=== PATIENT | female | born 1970 | race Caucasian/White ===

== ENCOUNTER 2017-02-28 15:21 | Inpatient (IN) | payer OTHER ==
[~2017-02-28] VITALS: Ht 170.2 cm; Wt 79.6 kg
[2017-02-28 16:16] LABS: BASOPHIL % 0.3 % (0-2); PLATELET COUNT 254 x10^3mcL (130-400); RED CELL DISTRIBUTION WIDTH 12.6 % (11.5-14.5)
[2017-02-28 16:20] LABS: CALCIUM 8.3 mg/dL (8.5-10.1); CHLORIDE SERUM 104 mmol/L (98-107); CREATININE SERUM 0.9 mg/dL (0.6-1.0); GFR1 > 60 mL/min; GLUCOSE SERUM 104 mg/dL (74-106); POTASSIUM SERUM 3.8 mmol/L (3.5-5.1); SODIUM SERUM 139 mmol/L (136-145)
[2017-02-28 16:25] LABS: ALBUMIN 3.5 g/dL (3.4-5.0); ALKALINE PHOSPHATASE 74 U/L (46-116); ALT/SGPT 26 U/L (14-59); AMYLASE 32 U/L (25-115); AST/SGOT 14 U/L (15-37); BILIRUBIN TOTAL 0.6 mg/dL (0.20-1.00); LIPASE 86 IU/L (73-393); TOTAL PROTEIN, SERUM 7.1 g/dL (6.4-8.2)
[2017-02-28] MEDS ORDERED: [UNRECOGNIZED DRUG - OTHER] PO (18:09)
[2017-02-28 19:12] VITALS: BP 137/83
[2017-02-28 19:43] LABS: T3 TOTAL 1.17 ng/mL
[2017-02-28 19:52] LABS: CHOLESTEROL/HDL RATIO 3.6; MAGNESIUM 1.7 mg/dL (1.8-2.4); PHOSPHOROUS 2.9 mg/dL (2.5-4.9)
[2017-02-28 19:58] LABS: FREE T4 1.1 ng/dL (0.76-1.46); FREE THYROXINE INDEX 3.1 ug/dL (1.4-4.5); T4(THYROXINE) 9.9 ug/dL (4.7-13.3)
[2017-02-28 21:48] VITALS: BP 125/82
[2017-02-28 23:41] LABS: UA SPECIFIC GRAVITY >=1.030 (1.005-1.035); microscopic required? YES; urine erythrocyte 1+ (NEGATIVE)
[2017-02-28 23:53] LABS: AMPHETAMINE QUAL UR NONE DETECTED (NEG <=1000)
[2017-03-01 06:10] LABS: BASOPHIL % 0.3 % (0-2); PLATELET COUNT 194 x10^3mcL (130-400); RED CELL DISTRIBUTION WIDTH 12.3 % (11.5-14.5)
[2017-03-01 06:13] VITALS: BP 109/69
[2017-03-01 06:14] LABS: CALCIUM 7.7 mg/dL (8.5-10.1); CARBON DIOXIDE 26.1 mmol/L (21-32); CHLORIDE SERUM 107 mmol/L (98-107); CREATININE SERUM 0.9 mg/dL (0.6-1.0); GFR1 > 60 mL/min; GLUCOSE SERUM 97 mg/dL (74-106); MAGNESIUM 1.8 mg/dL (1.8-2.4); POTASSIUM SERUM 3.6 mmol/L (3.5-5.1); SODIUM SERUM 141 mmol/L (136-145)
[2017-03-01 08:54] VITALS: BP 116/67
[2017-03-01 11:13] VITALS: Ht 170.2 cm; Wt 79.6 kg
[2017-03-01 13:04] VITALS: BP 115/62
[2017-03-01] MEDS ORDERED: APAP/HYDROCODON1 T13 PO (16:12)
[2017-03-01] MEDS ORDERED: ZOF4 PO ×2 (16:13→16:18)
[2017-03-01] MEDS ORDERED: LOPERAMIDE HCL2 M1 PO (16:15)
[2017-03-01 16:20] VITALS: BP 115/62
== END 2017-03-01 17:49 | disposition home or self-care (01) | DRG 249 ==
LOC: ED 15:21 → DU 17:42
PROVIDERS: Emergency Medicine; Family Medicine; Family Medicine Sports Medicine
DX: A08.4 Viral intestinal infection, unspecified (principal); E83.42 Hypomagnesemia; E83.51 Hypocalcemia; E78.5 Hyperlipidemia, unspecified; Z85.41 Personal history of malignant neoplasm of cervix uteri; T62.91XA Toxic effect of unspecified noxious substance eaten as food, accidental (unintentional), initial encounter; Y92.89 Other specified places as the place of occurrence of the external cause
CPT/HCPCS: 83880; 84439; 87046; 87046-59; 87804; J1885; J2405; J3010; J7030; Q9967

== ENCOUNTER 2017-03-13 13:31 | Inpatient (IN) | payer OTHER ==
[~2017-03-13] VITALS: Ht 170.2 cm; Wt 77.6 kg
[~2017-03-13 13:31] MED LIST: APAP/HYDROCODON1 T13 PO; LOPERAMIDE HCL2 M1 PO; ZOF4 PO; [UNRECOGNIZED DRUG - OTHER] PO
[2017-03-13 16:03] LABS: BASOPHIL % 0.7 % (0-2); PLATELET COUNT 308 x10^3mcL (130-400); RED CELL DISTRIBUTION WIDTH 12.7 % (11.5-14.5)
[2017-03-13 16:10] LABS: CALCIUM 9.3 mg/dL (8.5-10.1); CARBON DIOXIDE 24.4 mmol/L (21-32); CHLORIDE SERUM 105 mmol/L (98-107); GFR1 > 60 mL/min; GLUCOSE SERUM 96 mg/dL (74-106); POTASSIUM SERUM 3.2 mmol/L (3.5-5.1); SODIUM SERUM 143 mmol/L (136-145)
[2017-03-13 16:15] LABS: ALBUMIN 3.7 g/dL (3.4-5.0); ALKALINE PHOSPHATASE 84 U/L (46-116); ALT/SGPT 42 U/L (14-59); AMYLASE 38 U/L (25-115); AST/SGOT 21 U/L (15-37); LIPASE 126 IU/L (73-393)
[2017-03-13 17:29] LABS: T3 TOTAL 1.12 ng/mL
[2017-03-13 17:43] VITALS: BP 127/83
[2017-03-13 17:43] LABS: FREE T4 1.13 ng/dL (0.76-1.46); FREE THYROXINE INDEX 3.4 ug/dL (1.4-4.5); T4(THYROXINE) 11.2 ug/dL (4.7-13.3)
[2017-03-13 17:46] VITALS: Ht 170.2 cm; Wt 77.6 kg
[2017-03-13 18:05] LABS: MAGNESIUM 2.3 mg/dL (1.8-2.4); PHOSPHOROUS 3.5 mg/dL (2.5-4.9)
[2017-03-13 19:00] VITALS: BP 127/83
[2017-03-13 21:45] VITALS: BP 129/83
[2017-03-14 04:02] LABS: UA SPECIFIC GRAVITY 1.025 (1.005-1.035); microscopic required? YES; urine erythrocyte 1+ (NEGATIVE)
[2017-03-14 04:15] LABS: AMPHETAMINE QUAL UR NONE DETECTED (NEG <=1000)
[2017-03-14 05:58] VITALS: BP 132/72
[2017-03-14 06:32] LABS: BASOPHIL % 0.6 % (0-2); PLATELET COUNT 263 x10^3mcL (130-400); RED CELL DISTRIBUTION WIDTH 12.9 % (11.5-14.5)
[2017-03-14 06:47] LABS: CALCIUM 8.5 mg/dL (8.5-10.1); CARBON DIOXIDE 23.8 mmol/L (21-32); CHLORIDE SERUM 108 mmol/L (98-107); CHOLESTEROL 163 mg/dL (<200); CHOLESTEROL/HDL RATIO 4.7; CREATININE SERUM 0.9 mg/dL (0.6-1.0); GFR1 > 60 mL/min; GLUCOSE SERUM 89 mg/dL (74-106); HDL CHOLESTEROL 35 mg/dL (40-60); MAGNESIUM 2.1 mg/dL (1.8-2.4); PHOSPHOROUS 3.4 mg/dL (2.5-4.9); POTASSIUM SERUM 3.6 mmol/L (3.5-5.1); SODIUM SERUM 142 mmol/L (136-145); TRIGLYCERIDES 113 mg/dL (<150)
[2017-03-14 09:17] VITALS: BP 131/82
[2017-03-14 12:57] VITALS: BP 138/85
[2017-03-14 15:15] VITALS: BP 131/76
[2017-03-14 20:16] VITALS: BP 132/84
[2017-03-15 04:49] VITALS: BP 121/77
[2017-03-15 06:51] LABS: BASOPHIL % 0.3 % (0-2); PLATELET COUNT 297 x10^3mcL (130-400); RED CELL DISTRIBUTION WIDTH 12.6 % (11.5-14.5)
[2017-03-15 07:18] LABS: CALCIUM 8.6 mg/dL (8.5-10.1); CARBON DIOXIDE 25.4 mmol/L (21-32); CHLORIDE SERUM 106 mmol/L (98-107); CREATININE SERUM 0.9 mg/dL (0.6-1.0); GFR1 > 60 mL/min; GLUCOSE SERUM 93 mg/dL (74-106); POTASSIUM SERUM 3.7 mmol/L (3.5-5.1); SODIUM SERUM 141 mmol/L (136-145)
[2017-03-15 08:18] VITALS: BP 132/84
[2017-03-15] MEDS ORDERED: COL100 PO (12:18)
[2017-03-15 15:35] VITALS: BP 132/84
== END 2017-03-15 17:12 | disposition home or self-care (01) | DRG 263 ==
LOC: ED 13:31 → MU 16:34 → DU 16:34 → MU 03-14 10:07
PROVIDERS: Emergency Medicine; Family Medicine; Surgery
PROC: 0FT44ZZ Resection of Gallbladder, Percutaneous Endoscopic Approach (ICD-10-PCS; principal; 2017-03-14 13:00)
DX: K80.00 Calculus of gallbladder with acute cholecystitis without obstruction (principal); E87.6 Hypokalemia; N28.9 Disorder of kidney and ureter, unspecified; Z68.26 Body mass index [BMI] 26.0-26.9, adult; Z85.41 Personal history of malignant neoplasm of cervix uteri; Z53.29 Procedure and treatment not carried out because of patient's decision for other reasons
CPT/HCPCS: 83880; 84439; 94150; G0480; J0330; J0690; J1170; J1885; J2250; J2270; J2405; J2550; J2704; J2710; J3010; J3480; J3490; J7030; J7120; Q0092